=== PATIENT | female | born 2000 | race Caucasian/White ===

== ENCOUNTER 2024-11-01 18:38 | Emergency (ER) | payer OTHER, SELFPAY ==
[2024-11-01 18:38] VITALS: BP 117/68; PULSE 69; RESP 19; TEMP 36.4; O2SAT 100
[2024-11-01 18:58] LABS: Absolute Lymphocyte Count 1.43 X10^3/uL (0.83-4.51); Absolute Neutrophil Count 6.2 X10^3/uL (2.0-7.7); Basophil# 0.05 X10^3/uL; Basophil% 0.6 % (0-1); Eosinophil# 0.04 X10^3/uL; Eosinophils% 0.5 % (0-5); Hematocrit 35.3 % (37-47); Hemoglobin 12.8 g/dL (12.0-15.0); Lymphocyte # 1.43 X10^3/ul (0.83-4.51); Lymphocyte % 17.4 % (19-41); Mean Corp Hgb Conc 36.3 g/dL (32-36); Mean Corpuscular Hgb 32.2 pg (27.0-32.0); Mean Corpuscular Volume 88.9 fL (81-99); Mean Platelet Vol. 8.7 fl (6.2-12.0); Monocyte# 0.49 X10^3/uL; Monocyte% 5.9 % (0-10); NRBC Flagged by Analyzer 0 % (0-5); Neutrophil # 6.19 X10^3/uL (2.7-7.7); Neutrophil % 75.1 % (47-70); Platelet Count 229 K/mm3 (150-450); RBC Distribution Width CV 11.6 % (11.6-14.6); RBC Distribution Width SD 37.3 fl (35.1-43.9); Red Blood Count 3.97 M/mm3 (4.2-5.4); White Blood Count 8.2 K/mm3 (4.4-11.0)
--- NOTE | 2024-11-01 19:13 | ED.RN ---
THIS NURSE INFORMED BY PT. SUPPORT PEOPLE THAT SHE IS PASSING CLOTS AND NEEDS SOME SUPPLIES. PROVIDED W/ DEPENDS AND YOLANDE-PADS.
[2024-11-01 19:46] LABS: Anion Gap 4 (5-15); BUN 9 mg/dL (7-18); Calcium,Total 9.1 mg/dL (8.5-10.1); Chloride 106 mmol/L (98-107); Creatinine, Serum 0.64 mg/dL (0.55-1.02); EST Glomerular Filtration Rate 121 mL/min (>60); Est Glom Filt Rate - Afr Amer 147 mL/min (>60); Estimated Creatinine Clearance 114.34 ml/min; Glucose 107 mg/dL (74-106); Potassium 3.6 mmol/L (3.5-5.1); Sodium Level 138 mmol/L (136-145)
--- NOTE | 2024-11-01 20:11 | US_ITS ---
STUDY: FIRST TRIMESTER OBSTETRICAL ULTRASOUND REASON FOR EXAM: Female, 24 years old Vaginal bleeding LMP: TECHNIQUE: Transvaginal TECHNICAL QUALITY: Adequate. PRIOR ULTRASOUND: None. FINDINGS: There is visualization of a single gestational sac in a normal intrauterine position. The mean sac diameter (MSD) measures 2.7 cm, indicating an estimated gestational age (EGA) of 7 weeks, 5 days. The gestational sac shape is within normal limits. There is a visualized yolk sac. The yolk sac measures 4 mm. The placenta is non-visualized. There is visualization of a live embryo. The crown-rump length (CRL) measures 2.4 cm, indicating an estimated gestational age (EGA) of 8 weeks, 6 days. There is demonstrated cardiac activity with a heart rate of 177 bpm. There is a complex area measuring 4.3 x 4.8 x 2 cm with internal debris inferior to the left of the gestational sac possibly representing subchorionic bleed or less likely or second gestational sac with demise which is less likely The estimated gestation age (EGA) by LMP is 9 weeks, 3 days. The estimated date of delivery (CHANEL) by LMP is June 03, 2025. The estimated gestation age (EGA) by US is 8 weeks, 2 days. The estimated date of delivery (CHANEL) by US is June 11, 2025. The uterus measures 11.1 x 8.9 x 5.7 cm. There is no demonstrated uterine fibroid. The cervix is closed. The right ovary measures 3 x 4 x 2 cm. There is no right ovarian cyst. There is no visualized right adnexal mass or complex lesion. The left ovary measures 3 x 3 x 1 cm. There is no left ovarian cyst. There is no visualized left adnexal mass or complex lesion. There is mild to moderate fluid in the cul de sac. US/Transvaginal w/Preg US IMPRESSION: Viable intrauterine gestation approximately 8-9 weeks gestational age with probable subchorionic bleed. Mild to moderate fluid within the cul-de-sac which may be on the basis of recent rupture of ovarian cyst. Clinical correlation recommended and follow-up studies if clinically warranted Electronically Signed: Omi Esparza MD at 21:22 EST Reading Location ID and State: [facility] / [place] Tel , Service support ,
--- NOTE | 2024-11-01 20:12 | EDS_ITS ---
HPI HPI - Female History of Present Illness Chief Complaint: Vag Bld, Preg Narrative Narrative: 24-year-old female, G2, P1 at approximately 9 weeks gestation presents with vaginal bleeding that began today at around 2 PM. This was 6 hours ago. She denies any pelvic or vaginal cramping. No fevers or chills, no nausea or vomiting. She states she is using at least a pad an hour and it will slow down and then start again. She feels lightheaded but denies any chest pain or shortness of breath. She does take medication for depression, and it is reported that she is currently in an inpatient psychiatric facility. She has not seen an TUBE DRAWING SUPERVISOR yet. She did a home test a few weeks ago. [facility] Medical History Depression Allergy/AdvReac Type Severity Reaction Status Date / Time No Known Allergies Allergy Verified 11/01/24 18:40 Social History Smoking Status: Never smoker ROS ROS ED ROS Narrative Review of systems positive for vaginal bleeding at least a pad an hour. No vaginal cramping or pelvic cramping, no pain. No fevers or chills, no nausea or vomiting. Positive lightheadedness. No chest pain or shortness of breath. EXAM Physical Exam Narrative Exam Narrative: Afebrile. Vital signs noted. Nontoxic-appearing. Cardiovascular examination reveals a regular rate and rhythm. Lungs are clear to auscultation bilaterally. Abdomen is soft and nontender with normal active bowel sounds. Neurological examination is nonfocal and nonlateralizing. Skin examination shows no evidence of pallor or central cyanosis. Flat affect. Const Vital Signs: 11/01/24 18:38 11/01/24 21:00 Temperature 97.5 F L Temperature Source Temporal Pulse Rate 69 87 Respiratory Rate 19 H 16 Blood Pressure 117/68 116/78 Blood Pressure Mean 84 90 Pulse Ox 100 99 Oxygen Delivery Method Room Air Room Air MDM MDM MDM Narrative Medical decision making narrative: Differential diagnosis includes but not limited to threatened /miscarriage versus ectopic versus subchorionic hemorrhage. Comprehensive workup was pursued. Initial laboratory work obtained through protocol. In review of her CBC she has normal white count of 8.2 with hemoglobin normal at 12.8 and platelet count normal at 229. Glucose 107 with anion gap low at 4. I had an ABO Rh I added an ABO Rh as she is unsure of her blood type. I do feel that while hCG quant is pending, that she requires ultrasound. I reviewed her laboratory work and she has normal white count of 8.2 with hemoglobin normal at 12.8, platelet count normal at 229. ABO Rh shows A positive blood type. BMP obtained through protocol orders is grossly unremarkable except anion gap low at 4 and glucose of 107. hCG quantitative me asurement is 27,816. Additionally, I reviewed the obstetrics ultrasound which shows probable subchorionic bleed and a intrauterine gestation dated 8 to 9 weeks with a heart rate of 177. I discussed the patient with Dr. Nazanin Park for TUBE DRAWING SUPERVISOR no doc as the patient has not had care. They will contact her and she should follow-up in the next few days. She will return to the emergency department with increased bleeding, or any new or worsening symptoms. Disposition is discharged home in stable condition. History & Record Review Discussion w/independent historian: Patient and Family Lab Data Attestation: I reviewed the patient's lab results. Labs: Laboratory Results - last 24 hr 11/01/24 11/01/24 18:47 19:40 WBC 8.2 RBC 3.97 L Hgb 12.8 Hct 35.3 L MCV 88.9 MCH 32.2 H MCHC 36.3 H RDW Std Deviation 37.3 RDW Coeff of Sherrie 11.6 Plt Count 229 MPV 8.7 Immature Gran % (Auto) 0.500 Neut % (Auto) 75.1 H Lymph % (Auto) 17.4 L Reeves % (Auto) 5.9 Eos % (Auto) 0.5 Baso % (Auto) 0.6 Absolute Neuts (auto) 6.2 Absolute Lymphs (auto) 1.43 Nucleated RBC % 0 Sodium 138 Potassium 3.6 Chloride 106 Carbon Dioxide 28.0 Anion Gap 4 L BUN 9 Creatinine 0.64 Estim Creat Clear Calc 114.34 Est GFR (MDRD) Af Amer 147 Est GFR (MDRD) Non-Af 121 BUN/Creatinine Ratio 14.0 Glucose 107 H Calcium 9.1 HCG, Quant 02100 H Blood Type A POSITIVE Radiography Diagnostic Testing: Clinical Impression(s) from Imaging Studies Obstetrics Ultrasound 11/01/24 20:11 IMPRESSION: Viable intrauterine gestation approximately 8-9 weeks gestational age with probable subchorionic bleed. Mild to moderate fluid within the cul-de-sac which may be on the basis of recent rupture of ovarian cyst. Clinical correlation recommended and follow-up studies if clinically warranted Electronically Signed: Omi Esparza MD at 21:22 EST Reading Location ID and State: [address] [place] [address] Tel , Service support , Management Discussion w/another healthcare provider: Chemical Dependency Therapist (TUBE DRAWING SUPERVISOR on-call) Discharge Plan Triage Chief Complaint: Vag Bld, Preg ED Provider: Onofre Mcgraw Dx/Rx/DC Orders Clinical Impression: Subchorionic hemorrhage, Vaginal bleeding during , Threatened miscarriage Instructions: Vaginal Bleeding During , Miscarriage Threatened Primary Care Provider: Care Physician,No Primary Referrals: Tiffany Park, [Med Staff - Active Staff] - 3-5 Days if not improving NOT,DEFINED [Non-Staff] - Activity Restrictions/Additional Instructions: Return to the emergency department with increased bleeding including saturating a pad front to back for 2 hours straight. Follow-up with the TUBE DRAWING SUPERVISOR. They will contact you at your 's work number in the next few days as well. Print Language: Swedish Disposition Disposition: Home, Self Care
[2024-11-01 20:22] LABS: hCG Titer Quant., Serum 27816 mIU/mL (1-3)
[2024-11-01 21:00] VITALS: BP 116/78; PULSE 87; RESP 16; O2SAT 99
[2024-11-01 22:56] VITALS: BP 119/67; PULSE 73; RESP 14; TEMP 36.8; O2SAT 99
== END 2024-11-01 22:57 | disposition home or self-care (01) ==
PROVIDERS: Emergency Provider Emergency Medicine; Visit Provider Emergency Medicine
DX: O20.0 Threatened abortion (principal); O20.8 Other hemorrhage in early pregnancy; Z3A.09 9 weeks gestation of pregnancy
CPT/HCPCS: 76817; 80048; 84702; 85025; 86900; 86901; 99282; A4216

== ENCOUNTER 2024-11-13 11:49 | Emergency (ER) | payer OTHER, SELFPAY ==
[2024-11-13 11:51] VITALS: BP 101/55; PULSE 82; RESP 16; TEMP 36.9; O2SAT 100; BMI 19.7
--- NOTE | 2024-11-13 12:02 | US_ITS ---
STUDY: FIRST TRIMESTER OBSTETRICAL ULTRASOUND REASON FOR EXAM: Female, 24 years old bleeding LMP: 09/04/2024 TECHNIQUE: Transabdominal and Transvaginal TECHNICAL QUALITY: Adequate. PRIOR ULTRASOUND: 11/01/2024. FINDINGS: There is visualization of a single gestational sac in a normal intrauterine position. The mean sac diameter (MSD) measures 3.8 cm, indicating an estimated gestational age (EGA) of 9 weeks, 1 days. The gestational sac shape is within normal limits. Fluid collections are seen external to the amniotic sac. One is complex and measures 4.8 cm greatest dimension. It extends into the lower uterine segment. Another measures 2.6 cm adjacent to the gestational sac. These findings are most consistent with subchorionic hemorrhages, and recommend continued short interval follow-up. There is a visualized yolk sac. The yolk sac measures 5 mm. The placenta is non-visualized. There is visualization of a live embryo. The crown-rump length (CRL) measures 4.1 cm, indicating an estimated gestational age (EGA) of 10 weeks, 5 days. There is demonstrated cardiac activity with a heart rate of 182 bpm. The estimated gestation age (EGA) by LMP is 11 weeks, 1 days. The estimated date of delivery (CHANEL) by LMP is 06/03/2025. The estimated gestation age (EGA) by US is 10 weeks, 0 days. The estimated date of delivery (CHANEL) by US is 06/11/2025. The uterus measures 11.3 x 9.3 x 9.3 cm. There is no demonstrated uterine fibroid. The cervix is closed. The right ovary measures 4.2 x 2.0 x 2.3 cm. There is no right ovarian cyst. There is no visualized right adnexal mass or complex lesion. The left ovary measures 2.7 x 2.6 x 1.5 cm. There is no left ovarian cyst. There is no visualized left adnexal mass or complex lesion. There is minimal fluid in the cul de sac. US/Init OB < 14Wks US IMPRESSION: Electronically Signed: Lorenzo Oteor MD at 15:10 EST ,
--- NOTE | 2024-11-13 12:04 | ED.VIS.FEGU ---
HPI <NAKUL Simon - Last Filed: 11/13/24 16:20> HPI - Female History of Present Illness Chief Complaint: Vag Bld, Preg Narrative Narrative: 24-year-old [facility] female G2, P1 approximately 10 weeks presents with vaginal bleeding. She was seen here on 11/01/2024 with bleeding and had an ultrasound showing subchorionic hemorrhage. She has an appointment with [facility] AUTOMOTIVE SERVICE PROFESSIONAL next week. She states she bled once again after her visit but did not seek evaluation. This morning at 2 AM she had heavy vaginal bleeding with small clots which has slowed down now. She has no abdominal pain. She does feel weak and lightheaded. She has no chest pain or shortness of breath. She takes an antidepressant and is on no other medications. She denies history of abdominal surgery. PFSH <NAKUL Simon - Last Filed: 11/13/24 16:20> [facility] Medical History Depression Allergy/AdvReac Type Severity Reaction Status Date / Time No Known Allergies Allergy Verified 11/13/24 11:49 Social History Smoking Status: Never smoker ROS <NAKUL Simon - Last Filed: 11/13/24 16:20> ROS ED ROS Narrative Constitutional: Negative for fever, chills. CVS: Negative for palpitations, chest pain, syncope. Respiratory: Negative for shortness of breath. GI: Negative for abdominal pain, nausea, vomiting. : Negative for dysuria, hematuria or frequency. EXAM <NAKUL Simon - Last Filed: 11/13/24 16:20> Physical Exam Narrative Exam Narrative: CONST: Patient sitting in no acute distress. Appears pale. EYES: Normal inspection. NECK: Normal inspection. RESP: No respiratory distress, CTAB. CVS: Regular rate and rhythm, no murmur, no gallop. ABD: Soft and nontender, no guarding or rebound, nondistended. : Normal external genitalia, on speculum exam there is a small clot in the vaginal canal but no signs of active bleeding. Cervix appears closed. SKIN: Color normal, no rash, warm, dry, intact. EXTREMITIES: Normal appearance, no pedal edema. NEURO: Alert and answering questions appropriately. PSYCH: Normal affect. Const Vital Signs: 11/13/24 11:51 11/13/24 14:18 11/13/24 16:02 Temperature 98.5 F 98.2 F Temperature Source Oral Pulse Rate 82 76 72 Respiratory Rate 16 18 18 Blood Pressure 101/55 L 100/57 L 103/53 L Blood Pressure Mean 70 71 69 Pulse Ox 100 100 100 Oxygen Delivery Method Room Air <Dr. Emerson Anton DO - Last Filed: 11/13/24 15:23> Physical Exam Const Vital Signs: 11/13/24 11:51 11/13/24 14:18 11/13/24 16:02 Temperature 98.5 F 98.2 F Temperature Source Oral Pulse Rate 82 76 72 Respiratory Rate 16 18 18 Blood Pressure 101/55 L 100/57 L 103/53 L Blood Pressure Mean 70 71 69 Pulse Ox 100 100 100 Oxygen Delivery Method Room Air MDM <NAKUL Simon - Last Filed: 11/13/24 16:20> [facility] Narrative Medical decision making narrative: History gathered from: Patient, spouse Differential: Threatened miscarriage, anemia, UTI Consults: AUTOMOTIVE SERVICE PROFESSIONAL 24-year-old female G2, P1 with recent diagnosis of subchorionic hemorrhage presents with acute vaginal bleeding that started this morning. She has not had care. She appears pale but in no distress and nontoxic. BP is 101/55 with otherwise normal vital signs. CBC shows normal white count of 8.0. She has mild anemia with hemoglobin of 10.2 down from 12.82 weeks ago. Platelets normal at 253. BMP is unremarkable. hCG quant is 46,473. About 2 weeks ago it was 27,816. She is at the. In her where it might start to level off. Blood type is a positive so she does not require RhoGAM. Ultrasound shows live IUP with estimated age of 10 weeks, 5 days with a heart rate of 182 bpm. There are 2 subchorionic hemorrhages approximately 4.8 cm and 2.6 cm. Patient has not had any further heavy bleeding while here. She remains hemodynamically stable. I discussed the case with on-call [facility] AUTOMOTIVE SERVICE PROFESSIONAL, Dr. Barreto, who agreed with pelvic rest and recommended the patient take a daily vitamin and every other day and [id number] slow release iron supplement with orange juice. Patient has an appointment scheduled with AUTOMOTIVE SERVICE PROFESSIONAL on 11/17/2024. She was counseled on return precautions and discharged in stable condition. Lab Data Attestation: I reviewed the patient's lab results. Labs: Laboratory Results - last 24 hr 11/13/24 11/13/24 12:30 14:06 WBC 8.0 RBC 3.13 L Hgb 10.2 L Hct 28.8 L MCV 92.0 MCH 32.6 H MCHC 35.4 RDW Std Deviation 44.5 H RDW Coeff of Sherrie 13.7 Plt Count 253 MPV 8.8 Immature Gran % (Auto) 0.400 Neut % (Auto) 83.4 H Lymph % (Auto) 9.1 L [place] % (Auto) 6.7 Eos % (Auto) 0.0 Baso % (Auto) 0.4 Absolute Neuts (auto) 6.7 Absolute Lymphs (auto) 0.73 L Nucleated RBC % 0 Sodium 137 Potassium 3.8 Chloride 107 Carbon Dioxide 25.0 Anion Gap 5 BUN 7 Creatinine 0.53 L Estim Creat Clear Calc 135.94 Est GFR (MDRD) Af Amer 183 Est GFR (MDRD) Non-Af 151 BUN/Creatinine Ratio 13.2 Glucose 92 Calcium 8.8 HCG, Quant 27955 H Urine Color Red Urine Clarity Cloudy Urine pH 6.0 Ur Specific Inman 1.025 Urine Protein 100 H Urine Glucose (UA) Normal Urine Ketones 150 A* Urine Occult Blood 250 H Urine Nitrite Negative Urine Bilirubin Negative Urine Urobilinogen Normal Ur Leukocyte Esterase 100 H Urine RBC > 100 SEEN Urine WBC 10-25 SEEN Ur Squamous Epith Cells 10-25 SEEN Urine Bacteria 3+ Urine Mucus 1+ Blood Type A POSITIVE Radiography Diagnostic Testing: Clinical Impression(s) from Imaging Studies Obstetrics Ultrasound 11/13/24 12:02 IMPRESSION: Electronically Signed: Lorenzo Otero MD at 15:10 EST , <Dr. Emerson Anton, DO - Last Filed: 11/13/24 15:23> [facility] Lab Data Labs: Laboratory Results - last 24 hr 11/13/24 11/13/24 12:30 14:06 WBC 8.0 RBC 3.13 L Hgb 10.2 L Hct 28.8 L MCV 92.0 MCH 32.6 H MCHC 35.4 RDW Std Deviation 44.5 H RDW Coeff of Sherrie 13.7 Plt Count 253 MPV 8.8 Immature Gran % (Auto) 0.400 Neut % (Auto) 83.4 H Lymph % (Auto) 9.1 L [place] % (Auto) 6.7 Eos % (Auto) 0.0 Baso % (Auto) 0.4 Absolute Neuts (auto) 6.7 Absolute Lymphs (auto) 0.73 L Nucleated RBC % 0 Sodium 137 Potassium 3.8 Chloride 107 Carbon Dioxide 25.0 Anion Gap 5 BUN 7 Creatinine 0.53 L Estim Creat Clear Calc 135.94 Est GFR (MDRD) Af Amer 183 Est GFR (MDRD) Non-Af 151 BUN/Creatinine Ratio 13.2 Glucose 92 Calcium 8.8 HCG, Quant 23975 H Urine Color Red Urine Clarity Cloudy Urine pH 6.0 Ur Specific [place] 1.025 Urine Protein 100 H Urine Glucose (UA) Normal Urine Ketones 150 A* Urine Occult Blood 250 H Urine Nitrite Negative Urine Bilirubin Negative Urine Urobilinogen Normal Ur Leukocyte Esterase 100 H Urine RBC > 100 SEEN Urine WBC 10-25 SEEN Ur Squamous Epith Cells 10-25 SEEN Urine Bacteria 3+ Urine Mucus 1+ Blood Type A POSITIVE Radiography Diagnostic Testing: Clinical Impression(s) from Imaging Studies Obstetrics Ultrasound 11/13/24 12:02 IMPRESSION: Electronically Signed: Lorenzo Otero MD at 15:10 EST , Treatment and Re-Evaluation Narrative: I have personally performed a face to face assessment of the patient and have reviewed the RANDAL Note. I performed a substantive portion of the visit including all aspects of the following. My root findings include: History: Patient presents with vaginal bleeding that began today. Patient is approximately 10 weeks . Patient is G2, P1. Patient states her bleeding began rather suddenly this morning. Patient states it is starting to improve. Patient admits to some dysuria but denies any urinary frequency. Patient mitts to some subjective chills. Patient follows with [facility] AUTOMOTIVE SERVICE PROFESSIONAL. Patient's blood type is A positive. Exam: Vital signs are stable. Patient is afebrile. Patient is in no acute distress. Oral mucosa is pink and moist. Neck is supple. Trachea is midline. There is no JVD. Heart was regular rate and rhythm. Lungs are clear and equal bilaterally. There is good respiratory effort noted. Abdomen is soft. Bowel sounds are normal. There is no tenderness. There is no rebound or guarding noted. Cranial nerves II through XII are intact. There are no focal motor or sensory deficits noted. Medical Decision Making: Differential diagnosis includes threatened miscarriage, ectopic , urinary tract infection, subchorionic hemorrhage, and incomplete miscarriage. CBC will be obtained to assess for leukocytosis and anemia. Basic metabolic profile will be obtained to assess for electrolyte abnormality and renal function. Quantitative hCG will be obtained to assess for . Urinalysis will be obtained to assess for urinary tract infection and hematuria. CBC was reviewed. There is a mild anemia with a hemoglobin of 10.2 and hematocrit of 28.8. Basic metabolic profile was reviewed and was within normal limits. Quantitative hCG was reviewed and was 8[address]. Urinalysis was reviewed. It is a contaminated specimen. There are 10-25 white blood cells and 10-25 epithelial cells. Urine ketones were 150. Blood type was reviewed and was a positive. Pelvic ultrasound was obtained. There is a single live intrauterine with heart rate of 182. There are 2 areas of subchorionic hemorrhages, measuring 4.8 cm and 2.6 cm. Patient was advised of her findings. Patient was instructed on complete vaginal rest. Patient was instructed to follow-up with her AUTOMOTIVE SERVICE PROFESSIONAL in 3 to 5 days. Patient was instructed to return if worse in any way. Patient understood and was agreeable with the plan. All questions were answered. Discharge Plan Triage Chief Complaint: Vag Bld, Preg ED Midlevel Provider: [facility] ED Provider: Emerson Anton Dx/Rx/DC Orders Clinical Impression: Threatened miscarriage, Anemia, Subchorionic hemorrhage Instructions: Bleeding During Early , Miscarriage Threatened Primary Care Provider: Care Physician,No Primary Referrals: Tiffany Park DO [Med Staff - Active Staff] - Care Physician,No Primary [Primary Care Provider] - Activity Restrictions/Additional Instructions: I recommend pelvic rest which means do not put anything inside the vagina such as a tampon and do not have sex. Take a vitamin every day. Buy [id number] Slow Fe iron tablets and take 1 every other day with a glass of orange juice. Follow up with AUTOMOTIVE SERVICE PROFESSIONAL at your scheduled appointment. Take Tylenol as needed for pain. If you develop significant worsening symptoms like severe abdominal pain, much heavier bleeding, dizziness or you pass out come back to the emergency room. Print Language: Yoruba Disposition Disposition: Home, Self Care Discharge Date/Time: 11/13/24 16:03
[2024-11-13 12:47] LABS: Absolute Lymphocyte Count 0.73 X10^3/uL (0.83-4.51); Absolute Neutrophil Count 6.7 X10^3/uL (2.0-7.7); Basophil# 0.03 X10^3/uL; Basophil% 0.4 % (0-1); Hematocrit 28.8 % (37-47); Hemoglobin 10.2 g/dL (12.0-15.0); Lymphocyte # 0.73 X10^3/ul (0.83-4.51); Lymphocyte % 9.1 % (19-41); Mean Corp Hgb Conc 35.4 g/dL (32-36); Mean Corpuscular Hgb 32.6 pg (27.0-32.0); Mean Platelet Vol. 8.8 fl (6.2-12.0); Monocyte# 0.54 X10^3/uL; Monocyte% 6.7 % (0-10); NRBC Flagged by Analyzer 0 % (0-5); Neutrophil % 83.4 % (47-70); Platelet Count 253 K/mm3 (150-450); RBC Distribution Width CV 13.7 % (11.6-14.6); RBC Distribution Width SD 44.5 fl (35.1-43.9); Red Blood Count 3.13 M/mm3 (4.2-5.4)
[2024-11-13] MEDS: 0.9% Normal Saline (1000mL) 1,000 ML 999 ML IV (12:49)
[2024-11-13 13:03] LABS: Anion Gap 5 (5-15); BUN 7 mg/dL (7-18); BUN/Creat Ratio 13.2 RATIO (10-20); Calcium,Total 8.8 mg/dL (8.5-10.1); Chloride 107 mmol/L (98-107); Creatinine, Serum 0.53 mg/dL (0.55-1.02); EST Glomerular Filtration Rate 151 mL/min (>60); Est Glom Filt Rate - Afr Amer 183 mL/min (>60); Estimated Creatinine Clearance 135.94 ml/min; Glucose 92 mg/dL (74-106); Potassium 3.8 mmol/L (3.5-5.1); Sodium Level 137 mmol/L (136-145)
[2024-11-13 13:23] LABS: hCG Titer Quant., Serum 46473 mIU/mL (1-3)
[2024-11-13 14:13] LABS: Color, Urine Red (Yellow); Glucose, Dipstick Normal (Normal); Leukocyte Esterase-Dipstick 100 /ul (Negative); Nitrite-Dipstick Negative (Negative); Occult Blood-Urine 250 /ul (Negative); Protein-Dipstick 100 mg/dl (Negative); Specific Gravity, Urine 1.025 (1.002-1.030); Urine Bilirubin Dipstick Negative (Negative); Urine Clarity Cloudy (Clear); Urine Urobilinogen Normal (Normal)
[2024-11-13 14:18] VITALS: BP 100/57; PULSE 76; RESP 18; O2SAT 100
[2024-11-13 14:19] LABS: Ketone-Dipstick 150 mg/dl (Negative)
[2024-11-13 14:47] LABS: Bacteria 3+ /hpf (None Seen); Mucous, Urine 1+ /hpf (<or=2+); Red Blood Cells-Urine > 100 SEEN /hpf (0-5); Squamous Epithelial Cells - UA 10-25 SEEN /hpf (5-10); White Blood Cells 10-25 SEEN /hpf (0-5)
[2024-11-13 16:02] VITALS: BP 103/53; PULSE 72; RESP 18; TEMP 36.8; O2SAT 100
== END 2024-11-13 16:03 | disposition home or self-care (01) ==
PROVIDERS: Physician Assistant; Emergency Provider Emergency Medicine; Visit Provider Emergency Medicine
DX: O20.0 Threatened abortion (principal); O20.8 Other hemorrhage in early pregnancy; O99.011 Anemia complicating pregnancy, first trimester; Z3A.10 10 weeks gestation of pregnancy
CPT/HCPCS: 76801; 80048; 81001; 84702; 85025; 86900; 86901; 96360; 96361; 99283; A4216